=== PATIENT | female | born 1995 | race Caucasian/White ===

== ENCOUNTER 2018-08-06 20:42 | Emergency (ER) | payer BC ==
[~2018-08-06 20:42] MED LIST: CITA-155 PO; DESO1TAB16 PO; FLU60SYR30 IM ONLY; LISI2.5T60 PO; LISI5TAB25 PO; NORE-74 PO; SERT-181 PO; SERT-184 PO; School Note
[2018-08-06 20:48] VITALS: BP 143/98
--- NOTE | 2018-08-06 21:01 | ER Report ---
History and Physical Time Seen By MD: 20:53 Hx. of Stated Complaint: Ran out her sertaline last , needs a refill. taking 100mg daily HPI/ROS CHIEF COMPLAINT: Crying, depressed with some suicidal thoughts HISTORY OF PRESENT ILLNESS: This is a 23-year-old female. She came into the ER tonight after the police department recommended that she come in. She and her brother got into an argument today. They said a lot of mean and hurtful things to each other. Her brother decided to leave their apartment and drive to their parents home in [place]. She did not know where he was going so she called the police to try and find him and the police ended up being more concerned about her. She is tearful and crying, states she worries about the things she is said to her brother, worried about damaging their relationship. She does have a history of depression and is on sertraline. She did run out of the sertraline on , went without it on Saturday, Saturday and Saturday, then had it refilled on Saturday. She denies any other illnesses. She did take a drink of alcohol [facility], denies any drug use including marijuana. Denies any tobacco use. REVIEW OF SYSTEMS: Respiratory: No cough, no dyspnea. Cardiovascular: No chest pain, no palpitations. Gastrointestinal: No vomiting, no abdominal pain. Genitourinary: No problem with urination. Musculoskeletal: No back pain. Neuro: She does have a headache. Allergies: Coded Allergies: hydrocodone (Verified Adverse Reaction, Mild, "Makes me pass out", 08/06/18) Home Meds Active Scripts Sertraline Hcl (SERTRALINE HCL) 100 Mg Tablet, 1 TAB PO QDAY for 90 Days, #90 TAB 3 Refills Prov:DIALLO VAUGHAN DNP, FNP-BC 04/22/18 Lisinopril (LISINOPRIL) 2.5 Mg Tablet, 1 TAB PO QDAY for 90 Days, #90 TAB 3 Refills Prov:DIALLO VAUGHAN DNP, FNP-BC 03/11/18 Desog-Et Estra/Ethin Estra (MIRCETTE 28 DAY TABLET) 1 Each Tablet, 1 EACH PO DAILY, #1 PACK 11 Refills Prov:DIALLO VAUGHAN DNP, FNP-BC 10/08/17 Reported Medications Lisinopril (LISINOPRIL) 5 Mg Tablet, 2.5 MG PO QDAY, TAB 08/14/16 Reviewed Nurses Notes: Yes Smoking Status: Never Smoker Constitutional Vital Sign - Last 24 Hours 08/06/18 20:48 Temp 98.7 Pulse 105 Resp 16 B/P (MAP) 143/98 Pulse Ox 93 O2 Delivery Room Air Physical Exam General Appearance: The patient is alert. Tearful and anxious, acute distress because of her feelings. Non-toxic in appearance. Eyes: Pupils are equal, round. Reactive to light. No pallor, injection or icterus. Extraocular movements are intact. ENT: Mucous membranes are moist. Normal oral mucosa. Posterior oropharynx is normal. Normal tympanic membranes and canals. Neck: Supple and non tender. No lymphadenopathy. Respiratory: Lungs are clear to auscultation. Cardiovascular: Regular rate and rhythm. No murmurs, gallops or rubs. Normal capillary refill. Gastrointestinal: Abdomen is soft, nontender. Nondistended. Normal active bowel sounds. Neurological: Alert and oriented x3. No focal neurologic deficit Skin: Warm and dry. Musculoskeletal: Full range of motion. No musculoskeletal tenderness. DIFFERENTIAL DIAGNOSIS: After history and physical exam, differential diagnosis was considered for suicidal ideation, depression versus adjustment reaction. Medical Decision Making Data Points Result Diagram: 08/06/18211408/06/182114 Laboratory Hematology Test 08/06/18 21:10 08/06/18 21:15 Urine Color Yellow Urine Clarity Slightly-cloudy Urine pH 5.0 pH (4.8-9.5) Urine Specific [place] 1.006 Urine Protein 30 mg/dL (NEGATIVE) Urine Glucose (UA) Negative mg/dL (NEGATIVE) Urine Ketones Negative mg/dL (NEGATIVE) Urine Blood Negative (NEGATIVE) Urine Nitrite Negative (NEGATIVE) Urine Bilirubin Negative (NEGATIVE) Urine Urobilinogen Negative mg/dL (0.2-1.9) Urine Leukocyte Esterase Negative (NEGATIVE) Urine RBC None /HPF (0-2/HPF) Urine WBC 3 /HPF (0-5/HPF) Urine Squamous Epithelial Cells Many /LPF (</=FEW) Urine Amorphous Crystals Few /HPF Urine Bacteria Many /HPF (NONE-FEW) Urine Mucus None /HPF (NONE-FEW) Urine HCG, Qualitative Negative (NEGATIVE) Urine Opiates Screen Negative Urine Barbiturates Screen Negative Ur Tricyclic Antidepressants Screen Negative Urine Phencyclidine Screen Negative Urine Amphetamines Screen Negative Urine Benzodiazepines Screen Negative Urine Cocaine Screen Negative Urine Cannabinoids Screen Negative Red Blood Count 5.50 M/uL (4.17-5.56) Mean Corpuscular Volume 80.5 fL (80.0-96.0) Mean Corpuscular Hemoglobin 27.0 pg (26.0-33.0) Mean Corpuscular Hemoglobin Concent 33.5 g/dL (32.0-36.0) Red Cell Distribution Width 14.8 % (11.5-14.5) Mean Platelet Volume 8.4 fL (7.2-11.1) Neutrophils (%) (Auto) 66.2 % (39.4-72.5) Lymphocytes (%) (Auto) 25.6 % (17.6-49.6) Monocytes (%) (Auto) 5.8 % (4.1-12.4) Eosinophils (%) (Auto) 1.7 % (0.4-6.7) Basophils (%) (Auto) 0.7 % (0.3-1.4) Nucleated RBC Relative Count (auto) 0.0 /100WBC Neutrophils # (Auto) 8.4 K/uL (2.0-7.4) Lymphocytes # (Auto) 3.2 K/uL (1.3-3.6) Monocytes # (Auto) 0.7 K/uL (0.3-1.0) Eosinophils # (Auto) 0.2 K/uL (0.0-0.5) Basophils # (Auto) 0.1 K/uL (0.0-0.1) Nucleated RBC Absolute Count (auto) 0.00 K/uL Sodium Level 138 mmol/L (137-145) Potassium Level 3.9 mmol/L (3.5-5.0) Chloride Level 103 mmol/L (98-107) Carbon Dioxide Level 25 mmol/L (22-31) Blood Urea Nitrogen 15 mg/dl (7-18) Creatinine 0.90 mg/dl (0.52-1.04) Glomerular Filtration Rate Calc > 60.0 Random Glucose 106 mg/dl (75-110) Calcium Level 9.6 mg/dl (8.4-10.2) Magnesium Level 1.8 mg/dl (1.7-2.2) Total Bilirubin 0.2 mg/dl (0.2-1.3) Aspartate Amino Transf (AST/SGOT) 28 U/L (0-35) Alanine Aminotransferase (ALT/SGPT) 42 U/L (0-56) Alkaline Phosphatase 83 U/L (0-126) Total Protein 8.0 g/dl (6.3-8.2) Albumin 4.2 g/dl (3.5-5.0) Salicylates Level < 10 mg/L Salicylate Last Dose Date unk Acetaminophen Level < 10 ug/ml Serum Alcohol < 10 mg/dl Chemistry Test 08/06/18 21:10 08/06/18 21:15 Urine Color Yellow Urine Clarity Slightly-cloudy Urine pH 5.0 pH (4.8-9.5) Urine Specific [place] 1.006 Urine Protein 30 mg/dL (NEGATIVE) Urine Glucose (UA) Negative mg/dL (NEGATIVE) Urine Ketones Negative mg/dL (NEGATIVE) Urine Blood Negative (NEGATIVE) Urine Nitrite Negative (NEGATIVE) Urine Bilirubin Negative (NEGATIVE) Urine Urobilinogen Negative mg/dL (0.2-1.9) Urine Leukocyte Esterase Negative (NEGATIVE) Urine RBC None /HPF (0-2/HPF) Urine WBC 3 /HPF (0-5/HPF) Urine Squamous Epithelial Cells Many /LPF (</=FEW) Urine Amorphous Crystals Few /HPF Urine Bacteria Many /HPF (NONE-FEW) Urine Mucus None /HPF (NONE-FEW) Urine HCG, Qualitative Negative (NEGATIVE) Urine Opiates Screen Negative Urine Barbiturates Screen Negative Ur Tricyclic Antidepressants Screen Negative Urine Phencyclidine Screen Negative Urine Amphetamines Screen Negative Urine Benzodiazepines Screen Negative Urine Cocaine Screen Negative Urine Cannabinoids Screen Negative White Blood Count 12.7 k/uL (4.5-11.0) Red Blood Count 5.50 M/uL (4.17-5.56) Hemoglobin 14.9 g/dL (12.0-16.0) Hematocrit 44.3 % (34.0-47.0) Mean Corpuscular Volume 80.5 fL (80.0-96.0) Mean Corpuscular Hemoglobin 27.0 pg (26.0-33.0) Mean Corpuscular Hemoglobin Concent 33.5 g/dL (32.0-36.0) Red Cell Distribution Width 14.8 % (11.5-14.5) Platelet Count 289 K/uL (150-450) Mean Platelet Volume 8.4 fL (7.2-11.1) Neutrophils (%) (Auto) 66.2 % (39.4-72.5) Lymphocytes (%) (Auto) 25.6 % (17.6-49.6) Monocytes (%) (Auto) 5.8 % (4.1-12.4) Eosinophils (%) (Auto) 1.7 % (0.4-6.7) Basophils (%) (Auto) 0.7 % (0.3-1.4) Nucleated RBC Relative Count (auto) 0.0 /100WBC Neutrophils # (Auto) 8.4 K/uL (2.0-7.4) Lymphocytes # (Auto) 3.2 K/uL (1.3-3.6) Monocytes # (Auto) 0.7 K/uL (0.3-1.0) Eosinophils # (Auto) 0.2 K/uL (0.0-0.5) Basophils # (Auto) 0.1 K/uL (0.0-0.1) Nucleated RBC Absolute Count (auto) 0.00 K/uL Glomerular Filtration Rate Calc > 60.0 Calcium Level 9.6 mg/dl (8.4-10.2) Magnesium Level 1.8 mg/dl (1.7-2.2) Total Bilirubin 0.2 mg/dl (0.2-1.3) Aspartate Amino Transf (AST/SGOT) 28 U/L (0-35) Alanine Aminotransferase (ALT/SGPT) 42 U/L (0-56) Alkaline Phosphatase 83 U/L (0-126) Total Protein 8.0 g/dl (6.3-8.2) Albumin 4.2 g/dl (3.5-5.0) Salicylates Level < 10 mg/L Salicylate Last Dose Date unk Acetaminophen Level < 10 ug/ml Serum Alcohol < 10 mg/dl Toxicology Test 08/06/18 21:10 08/06/18 21:15 Urine Opiates Screen Negative Urine Barbiturates Screen Negative Ur Tricyclic Antidepressants Screen Negative Urine Phencyclidine Screen Negative Urine Amphetamines Screen Negative Urine Benzodiazepines Screen Negative Urine Cocaine Screen Negative Urine Cannabinoids Screen Negative Salicylates Level < 10 mg/L Salicylate Last Dose Date unk Acetaminophen Level < 10 ug/ml Serum Alcohol < 10 mg/dl Urinalysis Test 08/06/18 21:10 Urine Color Yellow Urine Clarity Slightly-cloudy Urine pH 5.0 pH (4.8-9.5) Urine Specific [place] 1.006 Urine Protein 30 mg/dL (NEGATIVE) Urine Glucose (UA) Negative mg/dL (NEGATIVE) Urine Ketones Negative mg/dL (NEGATIVE) Urine Blood Negative (NEGATIVE) Urine Nitrite Negative (NEGATIVE) Urine Bilirubin Negative (NEGATIVE) Urine Urobilinogen Negative mg/dL (0.2-1.9) Urine Leukocyte Esterase Negative (NEGATIVE) Urine RBC None /HPF (0-2/HPF) Urine WBC 3 /HPF (0-5/HPF) Urine Squamous Epithelial Cells Many /LPF (</=FEW) Urine Amorphous Crystals Few /HPF Urine Bacteria Many /HPF (NONE-FEW) Urine Mucus None /HPF (NONE-FEW) Urine HCG, Qualitative Negative (NEGATIVE) ED Course/Re-evaluation ED Course Labs unremarkable. I did give the patient ibuprofen 800 mg for headache. Discussed the case with Dr. Maza who accepted her for admission to [facility]. Prior to going upstairs, the patient stated that she changed her mind and wanted to go home. I talked with her briefly indicating my concern for her risk for suicide. Based on what we've discussed already jennifer, my feeling was that if she decided to leave I would be forced to do an emergency prison and I explained this process to the patient. After our conversation, she did agree to come in voluntarily. Decision to Disposition Date: Aug 06, 2018 Decision to Disposition Time: 21:52 Depart Departure Latest Vital Signs Vital Signs Date Time Temp Pulse Resp B/P (MAP) Pulse Ox O2 Delivery O2 Flow Rate FiO2 08/06/18 20:48 98.7 105 16 143/98 93 Room Air Impression: Primary Impression: Depression Additional Impression: Suicidal ideation Condition: Condition Unchanged Disposition: XFER TO [facility] Referrals: DIALLO VAUGHAN DNP, SOIL TESTER-BC (PCP) Problem Qualifiers Primary Impression: Depression Depression Type: unspecified Qualified Codes: F32.9 - Major depressive disorder, single episode, unspecified TYE UREÑA MD Aug 06, 2018 21:01
[2018-08-06 21:23] LABS: PLATELET COUNT, AUTOMATED 289 K/uL (150-450)
[2018-08-06] MEDS ORDERED: IBUPROFEN 800 MG TAB PO ONE (21:45)
[2018-08-07] MEDS ORDERED: MULT-1379 PO (10:57)
[2018-08-07] MEDS ORDERED: TRAZ100T31 PO (11:00)
== END 2018-08-06 22:07 ==
LOC: ER 21:03
DX: F32.9 Major depressive disorder, single episode, unspecified (principal); R45.851 Suicidal ideations
CPT/HCPCS: 36415; 80305; 80320; 80329; 81001; 81025; 82040; 82247; 82310; 82374; 82435; 82565; 82947; 83735; 84075; 84132; 84155; 84295; 84443; 84450; 84460; 84520; 85025; 87088; 99284

== ENCOUNTER 2018-08-06 21:57 | Inpatient (IN) | payer BC ==
[~2018-08-06] VITALS: Ht 154.9 cm; Wt 104.3 kg
[2018-08-06] MEDS ORDERED: ACETAMINOPHEN 325 MG TAB PO PRN (22:10)
[2018-08-06] MEDS ORDERED: LORazepam 1 MG TAB PO PRN (22:10)
[2018-08-06] MEDS ORDERED: MAG HYD/AL HYD/SIMETH 30ML UDC PO PRN (22:10)
[2018-08-06] MEDS ORDERED: LORazepam 1 MG TAB PO ONE (22:10)
[2018-08-07 00:43] VITALS: BP 143/92
[2018-08-07] MEDS ORDERED: MULTIVITAMINS TAB PO SCH (09:00)
[2018-08-07] MEDS ORDERED: MULT-1379 PO (10:57)
[2018-08-07] MEDS ORDERED: TRAZ100T31 PO (11:00)
--- NOTE | 2018-08-07 22:47 | SCHAAF H&P ---
DATE OF ADMISSION: August 06, 2018 DATE OF DISCHARGE: August 07, 2018 ATTENDING PHYSICIAN Flaco Maza MD PRESENTING PROBLEM, CHIEF COMPLAINT Patient having brief suicidal thoughts in relation to fight with family member. HISTORY OF PRESENT ILLNESS This is a very pleasant 23-year-old female who lives here in [place] with her brother, who is two years older. Patient reports that she and her brother got in an argument, and he had initially taken off from their home. Patient had contacted police regarding her brother's health. This later turned into police contacting the patient. Patient did report brief suicidal thoughts. She was brought to the emergency room by police under a voluntary status for continued evaluation, where patient was very pleasant, calm and cooperative. Patient notably, early on in the admission process, both in the ER and the Behavioral Health Unit, stating that she was worried that she had wrecked relations with her brother. She had contacted her mother in [place] almost immediately, and it became evident that patient had very close family support. Patient's grandparents living in the [place] area as well, and an aunt here as well. Patient reporting that she is no longer feeling profoundly depressed about situation, and patient overall interacting well with this provider and other treatment team staff. Patient appeared to be a very accurate historian overall. Patient interviewed in a very peaceful manner. Tearful at times when talking about her argument with brother, but insisting she no longer had any thoughts to harm herself, and she would not have gone through with thinking that way. When asked about depressive symptoms, patient has notably been on Zoloft at 100 mg and recently ran out of the script, but then started after a few more days again. Patient reported she is experiencing remorse over recent fight with her brother. Patient may be slowly gaining weight over time. Her energy has been low overall. Concentration remains okay. Patient reports interest in reading, watching TV continues. She reports a very hard time falling asleep, as she worries a lot. Patient also is potentially suffering from sleep apnea. Patient gives a history of snoring, propping her head up higher, and sleeping in recliners at times. Patient also gives a history of a.m. headaches with daytime somnolence. She reports her mood has quickly improved to a 5/10. Patient denies any symptoms of emanuel, psychosis, panic attacks, PTSD, phobias, anorexia, bulimia. Patient prefers to be a very organized individual, but denies any OCD symptoms. She has no history of self-harm, and patient also experiences headaches when under stress. MENTAL HEALTH HISTORY The patient has never been in an inpatient in a psychiatric [facility]. She did experience some counseling last summer, briefly, at the [facility]. This was due to some conflict at work. Patient has been taking Zoloft at 100 mg through outpatient provider Nancy Winn. The patient reports, "I was feeling a little suicidal" prior to admission; however, she denies any history of suicide attempt. FAMILY PSYCHIATRIC HISTORY The patient is adopted. She knows little about her biological father's side of the family, but she does have brief contact with her mother, and she believes her mother may experience some anxiety. No history of suicide attempt. 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 Patient remains on low-dose lisinopril and control. ALLERGIES HYDROCODONE. SOCIAL HISTORY The patient was born in [place] and raised mostly in the [facility] area. She was adopted as a young into a supportive family. Patient denies any physical, sexual, or emotional abuse growing up, and denies any neglect. Patient has been living with her [id number] brother, aged 23, currently in [place]. Patient also has four other half siblings. Patient is a high school graduate, obtained a GPA of 4.0. She is currently a [employer] in college, taking premedicine courses. Patient reports that her grades have plummeted somewhat. She has never been in the , never , has no children. She considers herself heterosexual, but does not have a significant other. Patient, again, rooming with her brother here in the [place] area. 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 Patient has aspirations of becoming an orthopedic surgeon. LEGAL HISTORY Patient denies any. SUBSTANCE ABUSE HISTORY Patient reports occasional alcohol, but she does not like feeling out of control, when she drinks occasionally. Patient has tried marijuana one time and did not like this, and denies any other drug history. PHYSICAL EXAMINATION Please see emergency room note. This is a 23-year-old female, obese in nature. At time of admission, vital signs showing temperature 98.7, pulse 105, respiratory rate 16, blood pressure 143/98, pulse oximetry 93% on room air. At time of discharge from Behavioral Health Unit, vital signs showing temperature 99.2, pulse 90, respiratory rate 16, blood pressure 143/92, and pulse oximetry 94% on room air. LABORATORY DATA Free T4 and free T3 pending. CBC notable for white blood cells elevated slightly at 12.7. Chemistry panel overall unremarkable. Notably, BUN is 15 and creatinine 0.90. TSH pending at time of this dictation. Urinalysis notable for urine protein present, with some urine bacteria. Culture of urine pending. screen negative. Toxicology screen negative. Non-detectable serum alcohol level. MENTAL STATUS EXAMINATION GENERAL APPEARANCE, BEHAVIOR AND ATTITUDE: This is a very cooperative, polite 23-year-old female making good eye contact. No bizarre mannerisms or tics. No psychomotor agitation or retardation. Patient interacting well, quickly allowing staff members to contact family. Patient doing so on her own accord. SPEECH: Within normal limits. Regular rate, rhythm, volume and tone. MOOD: Described as improved. AFFECT: Full at times and mood-congruent. Patient briefly tearful when discussing current stressors. THOUGHT PROCESSES: Seem goal-directed and logical; no loose associations or flight of ideas. THOUGHT CONTENT: Free of auditory or visual hallucinations, ideas of reference, thought broadcastings, delusions, obsessions or compulsions. Patient adamantly denying suicidal or homicidal ideation. Patient visiting with her aunt here on the unit. Aunt had no concerns. SENSORIUM: Clear. COGNITION: Alert and oriented to person, place, time and situation. MEMORY: Immediate, recent and remote estimated intact. INTELLIGENCE: Average to above, based on interview. INSIGHT AND JUDGMENT: Overall considered grossly intact and appropriate for ongoing outpatient management. ASSESSMENT This is a 23-year-old female who overall has what would be considered a solid relationship with family members, but patient having acute stress related to argument with brother. Patient open to continued outpatient treatment. Patient will address likely sleep apnea on an outpatient basis, and patient will follow up with a mental health provider as well as primary care provider for symptoms of concern, and will agree to have an appointment with therapist. DIAGNOSES 1. Adjustment disorder with anxious and depressed mood. 2. Rule out anxiety and depression secondary to general medical condition, Sleep apnea. 3. Cluster C personality traits. 4. Rule out anxiety disorder, unspecified. 5. Social stressors and sibling relational problem. PLAN Patient would discharge to home, to the care of her aunt. Patient would follow up with an overnight pulse oximetry through [facility] or outpatient provider. Script was written. Patient could take trazodone 50 to 150 mg p.o. at bedtime while awaiting results. Patient would follow up with Rebecca Kim and Azul Felipe, would continue Zoloft at 100 mg every a.m. Patient was given the crisis line if symptoms return, and will contact patient with results of thyroid testing. Patient also would remain on multivitamin daily and lisinopril 2.5 mg daily, and control as prescribed. Risks, benefits, and alternatives to above discharge plan were discussed. Informed consent was given to proceed with above discharge plan by this competent patient and patient's aunt present at time of discharge. CARLO
== END 2018-08-07 11:37 | disposition home or self-care (01) | DRG 882 ==
LOC: BHS 21:57
PROVIDERS: ADMIT Psychiatry & Neurology Psychiatry; ATTEND Psychiatry & Neurology Psychiatry
DX: F43.23 Adjustment disorder with mixed anxiety and depressed mood (principal); R45.851 Suicidal ideations; G47.30 Sleep apnea, unspecified; F41.9 Anxiety disorder, unspecified; F41.8 Other specified anxiety disorders; Z63.8 Other specified problems related to primary support group; Z88.5 Allergy status to narcotic agent
CPT/HCPCS: 84439; 84481